=== PATIENT | female | born 1935 | race Caucasian/White ===

== ENCOUNTER 2018-10-18 07:34 | Day surgery (SDC) | payer MEDICARE ==
[~2018-10-18] VITALS: Ht 157.5 cm; Wt 55.8 kg
[~2018-10-18 07:34] MED LIST: CENTRUM SILVER1 EAC2; CHOL10002; Pravachol40 MG
== END 2018-10-18 09:50 | disposition home or self-care (01) ==
LOC: ORSCSDS 07:34
PROVIDERS: Internal Medicine Gastroenterology
PROC: 0DBH8ZX Excision of Cecum, Via Natural or Artificial Opening Endoscopic, Diagnostic (ICD-10-PCS; principal; 2018-10-18 09:00)
PROC: 0DBK8ZX Excision of Ascending Colon, Via Natural or Artificial Opening Endoscopic, Diagnostic (ICD-10-PCS; principal; 2018-10-18 09:00)
DX: Z12.11 Encounter for screening for malignant neoplasm of colon (principal); D12.0 Benign neoplasm of cecum; D12.2 Benign neoplasm of ascending colon; Z87.891 Personal history of nicotine dependence; K57.30 Diverticulosis of large intestine without perforation or abscess without bleeding; K64.8 Other hemorrhoids; Z79.899 Other long term (current) drug therapy
CPT/HCPCS: 88305; J2405; J2704; J7120

== ENCOUNTER 2019-08-29 05:51 | Day surgery (SDC) | payer MEDICARE ==
[~2019-08-29] VITALS: Ht 160 cm; Wt 56.8 kg
[~2019-08-29 05:51] MED LIST changes: -CENTRUM SILVER1 EAC2; +CENTRUM SILVER1 EAC2 PO; -CHOL10002; +CHONDROITIN PO; -Pravachol40 MG; +Pravachol40 MG PO; +VEGETARIAN GLU750 MG PO; +VITAMIN D31 ML PO
--- NOTE | 2019-08-29 06:40 | NUR ---
Ambulatory in Day Surgery History, Chart, Medications and Allergies reviewed before start of procedure. Lungs clear T/O to Auscultation. Pre-Op teaching done. Pt verbalizes understanding.
--- NOTE | 2019-08-29 15:31 | NUR ---
PT WORKING W/ PHYSICAL THERAPY.
--- NOTE | 2019-08-29 17:24 | NUR ---
SUMMARY OOB TO CHAIR AND AMBULATED W/ PHYS. TX TODAY, REPORTS TOLERATED WELL, DENIES ANY NEED FOR PAIN MEDS AT THIS TIME, DSG C/D/I, DENIES ANY NUMBNESS OR TINGLING, VSS, NO ACUTE CHANGES THIS SHIFT.
[2019-08-30 04:35] LABS: BASOPHILS ABSOLUTE AUTO 0.02 K/mm3 (0.00-0.23); BASOPHILS PERCENT AUTO 0 % (0-2); EOSINOPHILS PERCENT AUTO 0 % (0-6); Hematocrit 30.6 % (33.0-51.0); Hemoglobin 10.1 g/dL (11.5-16.0); IMMATURE GRAN ABSOLUTE AUTO 0.12 K/mm3 (0.00-0.10); IMMATURE GRAN PERCENT AUTO 1 % (0-1); LYMPHOCYTES ABSOLUTE AUTO 1.49 K/mm3 (0.84-5.20); LYMPHOCYTES PERCENT AUTO 9 % (21-46); MONOCYTES PERCENT AUTO 7 % (4-13); Mean Corpuscular HGB 32.4 pg (26.0-34.0); Mean Corpuscular Volume 98 fL (80-100); Mean Platelet Volume 10.4 fL (9.1-12.4); NEUTROPHILS ABSOLUTE AUTO 14.22 K/mm3 (1.96-9.15); NEUTROPHILS PERCENT AUTO 84 % (41-73); Platelet Count 145 K/mm3 (150-400); RDW Coefficient Variation 14.1 % (11.7-14.2); RDW Standard Deviation 50.9 fL (35.1-46.3); Red Blood Cell Count 3.12 M/mm3 (3.80-5.20); White Blood Cell Count 17.05 K/mm3 (4.00-11.30)
[2019-08-30 04:55] LABS: Anion Gap 5 mmol/L (6-16); Blood Urea Nitrogen 17 mg/dL (8-24); Bun/Creatinine Ratio 21.1 (12.0-20.0); CO2, Blood 25 mmol/L (21-32); Calcium, Blood 8.5 mg/dL (8.5-10.1); Chloride, Blood 107 mmol/L (98-108); Glomerular Filtration Rate >60 (60-); Glucose, Blood 119 mg/dL (70-99); Magnesium, Blood 2.1 mg/dL (1.6-2.4); Potassium, Blood 4.4 mmol/L (3.5-5.5); Sodium, Blood 137 mmol/L (136-145)
--- NOTE | 2019-08-30 06:23 | NUR ---
POD 2 S/P R THSA. PT VSS T/O NIGHT. DRESSING CDI, POLAR PACK IN PLACE. PAIN MGD W/SHCEDULED TORADOL+1 OXYCODONE W/REP RELIEF. PT CHRISTI PO, NO N/V, IS VOIDING URINE W/O DIFFICULTY. PT UP OOB W/FWW+SBA, CHRISTI WELL., CIRC CHECKS WNL. PT USING CALL LIGHT FOR ASSISTANCE. WILL CONT TO MONITOR UNTIL REP GIVEN TO ONCOMING RN.
--- NOTE | 2019-08-30 07:57 | NUR ---
OOB TO CHAIR THIS AM, TOLERATED WELL, REPORTS HAVING ADEQUATE PAIN CONTROL, VOIDING WITHOUT DIFFICULTY, DENIES ANY SORE THROAT OR DIFFICULTY SWALLOWING, CONT. TO MONITOR FOR ANY CHANGES, PT/OT TODAY.
[2019-08-30] MEDS ORDERED: ACET500 PO (08:53)
[2019-08-30] MEDS ORDERED: OXYC5 PO (08:54)
[2019-08-30] MEDS ORDERED: ASPI81CH PO (08:54)
--- NOTE | 2019-08-30 11:37 | NUR ---
DC'D HOME, DC INSTRUCTIONS GIVEN, VERBALIZED UNDERSTANDING, PT ACCOMPANIED BY SISTER IN LAW.
== END 2019-08-30 11:02 | disposition home or self-care (01) ==
LOC: ORSCMMR 05:51 → SURS 11:28 → ORSCMMR 08-30 11:02
PROVIDERS: Orthopaedic Surgery
PROC: 0SR90JA Replacement of Right Hip Joint with Synthetic Substitute, Uncemented, Open Approach (ICD-10-PCS; principal; 2019-08-29 07:30)
DX: M16.11 Unilateral primary osteoarthritis, right hip (principal)
CPT/HCPCS: 36415; 72170; 80048; 83735; 85025; 88300; 97110; 97116; 97161; 97530; A9270-GY; C1713; C1776; J0171; J0690; J0735; J1100; J1885; J2370; J2405; J2704; J2795; J3010; J7120

== ENCOUNTER 2020-07-11 08:38 | Day surgery (SDC) | payer MEDICARE ==
[~2020-07-11] VITALS: Ht 160 cm; Wt 56.1 kg
[~2020-07-11 08:38] MED LIST changes: +ACET500 PO; +ASPI81CH PO; +OXYC5 PO; +Voltaren100 GM
[2020-07-11] MEDS ORDERED: VITAMIN B COMP0.4 MG (09:02)
--- NOTE | 2020-07-11 10:25 | NUR ---
07/11/20 1025 [address]ung [address] USED BY SURGEON FOR XRAY. 1.5CC USED ADN INJECTED
== END 2020-07-11 10:48 | disposition home or self-care (01) ==
LOC: ORSCSDS 08:38
PROVIDERS: Orthopaedic Surgery
PROC: 3E0R33Z Introduction of Anti-inflammatory into Spinal Canal, Percutaneous Approach (ICD-10-PCS; principal; 2020-07-11 10:00)
DX: M47.817 Spondylosis without myelopathy or radiculopathy, lumbosacral region (principal); M54.5 Low back pain; M48.07 Spinal stenosis, lumbosacral region; E78.5 Hyperlipidemia, unspecified; E78.00 Pure hypercholesterolemia, unspecified; F32.9 Major depressive disorder, single episode, unspecified; E61.1 Iron deficiency; Z87.891 Personal history of nicotine dependence
CPT/HCPCS: J1040

== ENCOUNTER 2020-11-09 10:03 | Day surgery (SDC) | payer MEDICARE ==
[~2020-11-09] VITALS: Ht 160 cm; Wt 56.5 kg
[~2020-11-09 10:03] MED LIST changes: +VITAMIN B COMP0.4 MG
--- NOTE | 2020-11-09 12:16 | NUR ---
Ambulatory in Day Surgery Surgical site prepped with 2% Chlorhexidine cloth wipe. Florencio Paws warming gown applied. History, Chart, Medications and Allergies reviewed before start of procedure.Lungs clear T/O to Auscultation. Patient confirms NPO status and agrees with scheduled surgery. Pre-Op teaching done. Pt verbalizes understanding. Patient States Post-Procedure ride home has been arranged. Patient reports completing Chlorhexadine shower X2 prior to admission to hospital.
--- NOTE | 2020-11-09 13:58 | NUR ---
Patient up to Ambulate independently. Gait steady. Discharge instructions reviewed with patient. Patient verbalizes understanding. Copy given to patient to take home. Patient States Post-Procedure ride home has been arranged. Discharged via wheelchair to private car for ride home. ALL BELONGINGS RETURNED TO PATIENT - MICHELA, SPINT FROM HOME.
== END 2020-11-09 23:57 | disposition home or self-care (01) ==
LOC: ORD 10:03 → ORSCMMR 10:03 → ORD 11:30
PROVIDERS: Orthopaedic Surgery
PROC: 0PSN34Z Reposition Left Carpal with Internal Fixation Device, Percutaneous Approach (ICD-10-PCS; principal; 2020-11-09 11:30)
DX: S62.025A Nondisplaced fracture of middle third of navicular [scaphoid] bone of left wrist, initial encounter for closed fracture (principal); W01.0XXA Fall on same level from slipping, tripping and stumbling without subsequent striking against object, initial encounter; Z87.891 Personal history of nicotine dependence
CPT/HCPCS: C1713; C1769; J0690; J1100; J1885; J2250; J2405; J2704; J3010; J7120

== ENCOUNTER 2021-07-18 13:00 | Day surgery (SDC) | payer MEDICARE ==
[~2021-07-18] VITALS: Ht 160 cm; Wt 52.5 kg
--- NOTE | 2021-07-18 13:22 | NUR ---
07/18/21 1322 Ana Ford CALL LIGHT WITHIN REACH
== END 2021-07-18 14:37 | disposition home or self-care (01) ==
LOC: ORSCSDS 13:00
PROVIDERS: Anesthesiology
PROC: 3E0R3BZ Introduction of Anesthetic Agent into Spinal Canal, Percutaneous Approach (ICD-10-PCS; principal; 2021-07-18 15:00)
DX: M54.16 Radiculopathy, lumbar region (principal); M48.061 Spinal stenosis, lumbar region without neurogenic claudication; E78.00 Pure hypercholesterolemia, unspecified; Z87.891 Personal history of nicotine dependence
CPT/HCPCS: J1030; J1040

== ENCOUNTER 2021-08-21 11:23 | Day surgery (SDC) | payer MEDICARE ==
[~2021-08-21] VITALS: Ht 152.4 cm; Wt 59.3 kg
== END 2021-08-21 13:00 | disposition home or self-care (01) ==
LOC: ORSCSDS 11:23
PROVIDERS: Anesthesiology
PROC: 3E0R33Z Introduction of Anti-inflammatory into Spinal Canal, Percutaneous Approach (ICD-10-PCS; principal; 2021-08-21 12:30)
DX: M54.16 Radiculopathy, lumbar region (principal); M48.061 Spinal stenosis, lumbar region without neurogenic claudication; E78.00 Pure hypercholesterolemia, unspecified; Z87.891 Personal history of nicotine dependence; Z79.899 Other long term (current) drug therapy
CPT/HCPCS: J1040

== ENCOUNTER → 2023-05-11 | Outpatient (CLI) | payer MEDICARE | LOC: LAB 07:55 → LAB SHORT 07:55 | DX: L90.5 Scar conditions and fibrosis of skin (principal); D49.89 Neoplasm of unspecified behavior of other specified sites; D22.9 Melanocytic nevi, unspecified; M79.672 Pain in left foot | CPT/HCPCS: 88305 ==